=== PATIENT | male | born 1970 | race Caucasian/White ===

== ENCOUNTER 2017-08-03 11:01 | Outpatient (CLI) | payer OTHER | END 2017-08-03 11:02 | disposition home or self-care (01) | LOC: SC 11:01 | PROVIDERS: ATTEND Internal Medicine Pulmonary Disease | DX: G47.33 Obstructive sleep apnea (adult) (pediatric) (principal) | CPT/HCPCS: 99203; 99212 ==

== ENCOUNTER 2017-10-06 09:49 | Outpatient (CLI) | payer OTHER | END 2017-10-06 09:50 | disposition home or self-care (01) | LOC: SC 09:49 | PROVIDERS: ATTEND Nurse Practitioner Family | DX: G47.33 Obstructive sleep apnea (adult) (pediatric) (principal) | CPT/HCPCS: 99212; 99214 ==